=== PATIENT | female | born 1955 | race Caucasian/White ===

== ENCOUNTER 2023-09-17 14:51 | Inpatient (IN) ==
[2023-09-17 15:48] LABS: Hematocrit (blood only) 28.5 % (37.0-47.0); Hemoglobin 8.2 g/dl (12.0-16.0); Mean Corpuscular Hemoglobin 23.9 pg (25.0-34.0); Mean Corpuscular Hgb Conc 28.8 g/dL (32.0-36.0); Mean Corpuscular Volume 83.1 fL (80.0-100.0); Mean Platelet Volume 10.4 fL (9.4-12.4); Platelet Count 660 K/uL (130-400); RDW Coefficient of Variation 20.2 % (11.5-14.5); RDW Standard Deviation 60.1 fL (36.4-46.3); Red Blood Count 3.43 M/uL (4.20-5.40); White Blood Count 15.98 K/ul (4.8-10.8)
[2023-09-17] MEDS ORDERED: OXYMETAZOLINE 0.05% 30 ML BTL ONE (15:53)
[2023-09-17] MEDS ORDERED: STAT IV Infusion **Titration per Protocol STA (16:03)
[2023-09-17] MEDS ORDERED: dilTIAZem HCl 5 MG/ML 5 ML VIAL IV STA (16:03)
[2023-09-17 16:13] LABS: Partial Thromboplastin Ratio 0.9; Partial Thromboplastin Time 25 Seconds (21-31); Prothrombin Time 11.1 Seconds (9.0-12.0)
[2023-09-17] MEDS ORDERED: SODIUM CHLORIDE 0.9% 500 ML IV ONE (16:14)
[2023-09-17] MEDS ORDERED: SODIUM CHLORIDE 0.9% 250 ML IV PRN ×2 (16:14→23:41)
[2023-09-17] MEDS: dilTIAZem HCL 125 MG in DEXTROSE 5% 100 ML IV SCH (16:19)
--- NOTE | 2023-09-17 16:24 | Emergency Department Note ---
Impression & Plan Atrial fibrillation with rapid ventricular response, Anemia, Epistaxis, Elevated troponin, Leukocytosis ED Provider Note NAME: NADEEN MERCEDES AGE: 68 SEX: F : 1955 ARRIVES VIA: Walk-In INFORMANT: [Patient][family] ED PROVIDER(S): [Tang Geiger MD] CHIEF COMPLAINT: Nosebleed HISTORY OF PRESENT ILLNESS: The patient is a 68-year-old female who had 2 coronary stents placed around 4 days ago. The patient states that she has had nasal bleeding since leaving the hospital that has come and gone, it has primarily been right-sided. She was taking Plavix and aspirin but started holding the aspirin because of the bleeding. Today, she had 2 episodes of bleeding and decided to present for evaluation. There has been no shortness of breath or chest pain. No fall or syncope, no trauma. She has had nasal bleeding before from time to time but nothing this severe. Of note, as per nursing staff, the patient was quite tachycardic upon arrival. The patient did not notice any palpitations. She has no history of dysrhythmia. Of note, the patient had presented to [facility] in [place] for weakness. She was found to be quite anemic. The anemia was felt secondary to persistent nasal bleeding. The patient did have an upper GI performed and there was no source for bleeding. There is no blood in her stools. The patient did receive 3 units of red blood cells during the hospital stay. The need for coronary stenting was found during the hospitalization. The stents were placed as noted above without difficulty. The patient did leave the hospital anemic but she is unsure of her hemoglobin value. PMHx/PSHx/Social Hx: See Below PHYSICAL EXAM: GENERAL: Patient is in no acute distress. HEENT: No acute trauma, normocephalic atraumatic, mucous membranes moist, no nasal congestion. Patient had tissues packed in both nostrils. There was a clot removed on the right with the tissues themselves were removed, there was no active bleeding from the right or left side. There was no blood running down the back of the throat. On exam, the patient had an obvious area of irritation to the right anterior nasal septum that had been bleeding earlier, there was no active bleeding. NECK: No stridor, no adenopathy, no meningismus, trachea is midline. LUNGS: Clear to auscultation bilaterally, no wheeze, no rhonchi, breath sounds equal. HEART: Tachycardic and irregular, no obvious murmur. ABDOMEN: Soft, nontender, no peritonitis. EXTREMITIES: No cyanosis, full range of motion of all the joints without pain or difficulty. NEUROLOGIC: Oriented x 3, no acute motor or sensory deficits, no focal weakness. SKIN: No jaundice, no diaphoresis. Somewhat pale DIFFERENTIAL DIAGNOSIS: Anemia, dysrhythmia, A-fib, a flutter, SVT, coagulopathy, electrolyte imbalance, among others. EMERGENCY DEPARTMENT PROCEDURES: MEDICAL DECISION MAKING: There is a moderate leukocytosis at around 15,000, this could be consistent with infection or just the stress of her current situation. Patient's hemoglobin was low at 8.2. I have no old values to use for comparison. Platelet count was high at 660. No coagulopathy. No electrolyte abnormality or renal failure. No concerning liver enzyme elevation. The patient appeared to be in a euthyroid state. ECG showed rapid atrial fibrillation with a right bundle branch block. Cardiac enzyme testing was elevated at 624, this elevation could be secondary to mismatch, acute cardiac injury or her recent coronary stenting. On exam, the patient had an area of previous/recent bleeding to the right anterior nasal septum. No active nasal bleeding. She seemed somewhat pale and was not tachycardic. She did not complain of chest pain or shortness of breath. Patient had Afrin applied to the nose and a nasal clip applied for about 30 minutes, no further bleeding after. She received a 500 cc saline bolus for hydration purposes. She was placed on a diltiazem drip after a diltiazem IV bolus. Patient's heart rate is improved, her blood pressure is adequate at around 150 systolic. She is afebrile, there has been no further nasal bleeding. I spoke to case management and our on-call hospitalist. 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 They felt an ENT procedure was necessary. I spoke with the patient, I spoke again with case management, I did reach out to [facility] for transfer. I spoke with Dr. Hou at [facility] in [place]. There is no bed available at their facility this evening. As the patient was not experiencing ongoing epistaxis, emergent transfer to their emergency room was not felt warranted. They recommended hospitalization at our facility this evening. I did speak with the on-call hospitalist, I spoke with case management. The patient is aware of the change to admission at our facility this evening. Prior/Outside records/notes reviewed: ECG per my interpretation: Indication was tachycardia. The ECG shows a rapid A-fib with a rate of 169. There is a right bundle branch block. There is no obvious ST elevation, there is diffuse T wave inversion consistent with the rapid rate. No PVCs. The QTc is 405. Continuous Cardiac Monitoring per my interpretation: An order was placed for continuous cardiac monitoring. The monitor shows a rate of 155 with rapid atrial fibrillation. Imaging/x-ray results per my interpretation: Chronic Medical/Social conditions affecting care: Coronary artery disease. Care/Management discussed with: Case management and the on-call hospitalist. [facility] retail leader-Dr. Hou. Level of care consideration(s): After review of the information above and other included data: Admission and escalation of care to a tertiary center. DISPOSITION: Admission and eventual transfer to a tertiary center, [facility], when a bed becomes available. Past Med/Surg History Medical History Epistaxis CAD (coronary atherosclerotic disease) Social History Smoking Status: Former smoker Feels Safe at Home: Yes Home Meds Home Medications Medication Instructions Recorded Confirmed atorvastatin 40 mg tablet 40 mg PO HS 09/17/23 09/17/23 clopidogrel 75 mg tablet 75 mg PO DAILY 09/17/23 09/17/23 ferrous sulfate 325 mg (65 mg 325 mg PO QAM 09/17/23 09/17/23 iron) tablet (FeroSul) furosemide 20 mg tablet 20 mg PO QAM 09/17/23 09/17/23 lisinopril 5 mg tablet 5 mg PO QAM 09/17/23 09/17/23 melatonin 1 tab PO HS 09/17/23 09/17/23 metoprolol succinate 25 mg 12.5 mg PO DAILY 09/17/23 09/17/23 tablet,extended release 24 hr nitroglycerin 0.4 mg sublingual 0.4 mg sublingual DIRECTED PRN 09/17/23 09/17/23 tablet Chest Pain pantoprazole 40 mg tablet,delayed 40 mg PO DAILY 09/17/23 09/17/23 release potassium chloride 10 mEq 10 meq PO .EVERY OTHER DAY 09/17/23 09/17/23 tablet,extended release(part/cryst) Results & Data (ED) Vital Signs Vital Signs - 24 hr 09/17/23 14:58 09/17/23 15:31 09/17/23 16:20 Temperature 36.6 C Temperature Source Temporal Artery Scan Pulse Rate 132 H 155 H Pulse Rate [Bilateral] 132 H Respiratory Rate 20 22 Respiratory Effort / Characteristics Non-Labored Respiratory Depth Normal Blood Pressure 127/82 Blood Pressure [Right Arm] 141/99 H Blood Pressure Mean 97 Blood Pressure Mean [Right Arm] 113 Pulse Oximetry 96 95 Oxygen Delivery Method Room Air Room Air Sepsis Recent Fever Within 48 Hours No Sepsis New/Unexplained Change in Mental Status N/A Sepsis Action Taken by Nursing No Action Required 09/17/23 17:00 09/17/23 17:40 09/17/23 18:00 Temperature Temperature Source Pulse Rate Pulse Rate [Bilateral] 109 H 104 H 108 H Respiratory Rate 18 18 18 Respiratory Effort / Characteristics Respiratory Depth Blood Pressure Blood Pressure [Right Arm] 139/85 139/85 149/89 H Blood Pressure Mean Blood Pressure Mean [Right Arm] 103 103 109 Pulse Oximetry 98 96 96 Oxygen Delivery Method Room Air Room Air Room Air Sepsis Recent Fever Within 48 Hours Sepsis New/Unexplained Change in Mental Status Sepsis Action Taken by Nursing 09/17/23 19:14 09/17/23 19:34 Temperature Temperature Source Pulse Rate 93 H Pulse Rate [Bilateral] 98 H Respiratory Rate 18 Respiratory Effort / Characteristics Respiratory Depth Blood Pressure Blood Pressure [Right Arm] 140/98 Blood Pressure Mean Blood Pressure Mean [Right Arm] 112 Pulse Oximetry 98 Oxygen Delivery Method Room Air Sepsis Recent Fever Within 48 Hours Sepsis New/Unexplained Change in Mental Status Sepsis Action Taken by [facility] Medications Current Medication List: was personally reviewed by me Laboratory Data Attestation: I reviewed the patient's lab results. 09/17/23 15:22 09/17/23 16:03 Lab Results 09/17/23 09/17/23 09/17/23 Range/Units 15:22 16:03 16:27 WBC 15.98 H (4.8-10.8) K/ul RBC 3.43 L (4.20-5.40) M/uL Hgb 8.2 L (12.0-16.0) g/dl Hct 28.5 L (37.0-47.0) % MCV 83.1 (80.0-100.0) fL MCH 23.9 L (25.0-34.0) pg MCHC 28.8 L (32.0-36.0) g/dL RDW Std Deviation 60.1 H (36.4-46.3) fL RDW Coeff of Gwen 20.2 H (11.5-14.5) % Plt Count 660 H (130-400) K/uL MPV 10.4 (9.4-12.4) fL PT 11.1 (9.0-12.0) Seconds INR 1.0 (0.9-1.1) APTT 25 (21-31) Seconds PTT Ratio 0.9 Sodium 138 (136-145) mmol/L Potassium 3.9 (3.5-5.1) mmol/L Chloride 103 (98-107) mmol/L Carbon Dioxide 24 (21-32) mmol/L Anion Gap 11 (3-11) BUN 17 (6-23) mg/dl Creatinine 0.72 (0.6-1.2) mg/dl Est Cr Clr Drug Dosing 76.5 ml/min Est GFR ( Amer) 99.0 ml/min Est GFR (Non-Af Amer) 85.4 ml/min BUN/Creatinine Ratio 23.6 H (10-20) Glucose 115 H (70-99(Fasting)) mg/dl Calcium 8.8 (8.6-10.3) mg/dl Magnesium 2.1 (1.7-2.4) mg/dl Total Bilirubin 0.9 (0.2-1.0) mg/dl AST 31 (13-39) U/L ALT 30 (7-52) U/L Alkaline Phosphatase 69 (34-104) U/L Troponin I High Sens 624.1 H* (0-14) pg/ml Total Protein 7.0 (6.0-8.3) gm/dl Albumin 3.5 (3.4-5.0) gm/dl Globulin 3.5 (2.5-4.0) gm/dl Albumin/Globulin Ratio 1.0 (0.9-2) TSH 3.747 (0.300-4.500) uIu/ml Blood Type A Negative Antibody Screen NEGATIVE Crossmatch See Detail Administered Medications Diltiazem HCl 125 mg/ Dextrose 125 mls @ 5 mls/hr IV .Q24H [facility]; Protocol Stop: 10/17/23 16:14 Last Titration: 09/17/23 18:14 Dose: 15 mg/hr, 15 mls/hr Documented By: GEO Co-signed By: SARIKA Titration: 09/17/23 17:15 Dose: 10 mg/hr, 10 mls/hr Documented By: GEO Co-signed By: HS Admin: 09/17/23 16:19 Dose: 5 mg/hr, 5 mls/hr Documented By: GEO Co-signed By: HS Discontinued Medications Diltiazem HCl (Diltiazem Hcl 5 Mg/Ml 5 Ml Vial) 15 mg IV NOW STA Stop: 09/17/23 16:04 Last Admin: 09/17/23 16:18 Dose: 15 mg Documented By: GEO Co-signed By: SARIKA Sodium Chloride (Nss) 500 mls @ 999 mls/hr IV .Q31M ONE Stop: 09/17/23 16:44 Last Infusion: 09/17/23 18:11 Dose: Infused Documented By: Admin: 09/17/23 17:18 Dose: 999 mls/hr Documented By: GEO Miscellaneous (Stat Iv Infusion Titration Per Protocol) 1 each N/A NOW STA Stop: 09/17/23 16:04 Last Admin: 09/17/23 18:32 Dose: Not Given Documented By: GEO Oxymetazoline HCl (Oxymetazoline 0.05% 30 Ml Btl) Confirm Administered Dose 150 sprays .ROUTE .STK-MED ONE Stop: 09/17/23 15:54 Last Admin: 09/17/23 16:18 Dose: 2 sprays Documented By: GEO Discharge Plan Visit Data Chief Complaint: Nose Bleed (Minor) Stated Complaint: NOSE BLEED ONGOING ED Provider: Tang Geiger Discharge Problem: Atrial fibrillation with rapid ventricular response, Anemia, Epistaxis, Elevated troponin, Leukocytosis Patient Disposition: Admitted As Inpatient Condition: Fair Forms Stand Alone Forms: My [facility] Prescriptions Prescriptions: No Action atorvastatin 40 mg tablet 40 mg PO HS clopidogrel 75 mg tablet 75 mg PO DAILY pantoprazole 40 mg tablet,delayed release (DR/EC) 40 mg PO DAILY ferrous sulfate [FeroSul] 325 mg (65 mg iron) tablet 325 mg PO QAM nitroglycerin 0.4 mg tablet, sublingual 0.4 mg sublingual DIRECTED PRN (Reason: Chest Pain) lisinopril 5 mg tablet 5 mg PO QAM furosemide 20 mg tablet 20 mg PO QAM metoprolol succinate 25 mg tablet extended release 24 hr 12.5 mg PO DAILY potassium chloride 10 mEq tablet,ER particles/crystals 10 meq PO .EVERY OTHER DAY melatonin 1 tab PO HS Referrals Referrals: PCP,NO [Primary Care Provider] - Discharge Problem: Anemia Qualifiers: Anemia type: unspecified type Qualified Code(s): D64.9 - Anemia, unspecified Leukocytosis Qualifiers: Leukocytosis type: unspecified Qualified Code(s): D72.829 - Elevated white blood cell count, unspecified
[2023-09-17 16:28] LABS: Albumin Level 3.5 gm/dl (3.4-5.0); BUN Creatinine Ratio 23.6 (10-20); Bilirubin,Total 0.9 mg/dl (0.2-1.0); Calcium 8.8 mg/dl (8.6-10.3); Creatinine Clr Calc Pharmacy 76.5 ml/min; Est GFR (Non-African American) 85.4 ml/min; Globulin 3.5 gm/dl (2.5-4.0); Magnesium 2.1 mg/dl (1.7-2.4); Potassium 3.9 mmol/L (3.5-5.1)
[2023-09-17 16:39] LABS: Troponin I High Sensitivity 624.1 pg/ml (0-14)
[2023-09-17 16:43] LABS: Thyroid Stimulating Hormone 3.747 uIu/ml (0.300-4.500)
--- NOTE | 2023-09-17 17:17 | History & Physical Report ---
Date of Service September 17, 2023 History of Present Illness Primary Care Provider: NO PCP Home Medications Medication Instructions Recorded Confirmed Type atorvastatin 40 mg tablet 40 mg PO HS 09/17/23 09/17/23 History clopidogrel 75 mg tablet 75 mg PO DAILY 09/17/23 09/17/23 History ferrous sulfate 325 mg (65 mg 325 mg PO QAM 09/17/23 09/17/23 History iron) tablet (FeroSul) furosemide 20 mg tablet 20 mg PO QAM 09/17/23 09/17/23 History lisinopril 5 mg tablet 5 mg PO QAM 09/17/23 09/17/23 History melatonin 1 tab PO HS 09/17/23 09/17/23 History metoprolol succinate 25 mg 12.5 mg PO DAILY 09/17/23 09/17/23 History tablet,extended release 24 hr nitroglycerin 0.4 mg sublingual 0.4 mg sublingual DIRECTED PRN 09/17/23 09/17/23 History tablet Chest Pain pantoprazole 40 mg tablet,delayed 40 mg PO DAILY 09/17/23 09/17/23 History release potassium chloride 10 mEq 10 meq PO .EVERY OTHER DAY 09/17/23 09/17/23 History tablet,extended release(part/cryst) Past Med/Surg History Social History Smoking Status: Former smoker Feels Safe at Home: Yes Results & Data Results & Data Vital Signs (Past 12 Hours) Vital Signs Temp Pulse Pulse Resp BP BP Pulse Ox 09/17/23 16:20 132 H 22 141/99 H 95 09/17/23 15:31 155 H 09/17/23 14:58 36.6 C 132 H 20 127/82 96 O2 Del Method 09/17/23 16:20 Room Air 09/17/23 15:31 09/17/23 14:58 Room Air PG Care Time/CCT Total # of Minutes Spent Total Time Spent with Patient: Total time spent is greater than 50% in coordination of care (as documented) at patient's floor/unit and/or counseling patient: Coding
--- NOTE | 2023-09-17 20:02 | Consultation ---
Date of Consultation September 17, 2023 Assessment & Plan (1) Acute blood loss anemia: 2nd to #2 Has already been T/C for 2 units PRBCs likely to need at least 1 unit of PRBCs recheck H/H this evening obtain formal Fe panel, B12, and folic acid levels for baseline cbc am (2) Epistaxis: mainly the R nare for several months in duration she had so much recurrent bleeding that by the time of her admission to [facility] recently she was severely anemic (H/H unknown, however - records not available) required 2 units [address] [facility] she remains anemic here with Hb just above 8 since discharge from [place] she has had 2 heavy nosebleeds - Thursday of this week and today this is a significant dilemma as we cannot stop her plavix due to recent stent placement; stopping plavix could lead to stent thrombosis ideally she remain on DAPT for at least 1 month patient needs thorough ENT evaluation to locate the source/location of the epistaxis without definitive diagnosis/treatment she will continue with epistaxis -- the plavix/aspirin will lend itself to ongoing bleeding further, given the new onset a.fib and high CHADs-VASC score, ideally she should be on anticoagulation but that is simply not possible at this time I had spoken with on-call [facility] shortly after I saw Mrs Bailey in the ER Unfortunately it does not appear that there will be ENT coverage tomorrow on 09/18/23 Given the acute/chronic epistaxis she needs easy access to ENT for evaluation and Rx I recommended to the ER attending that she be transferred to a tertiary care center By report the ER attending reached out to [facility] but she was not accepted in transfer Therefore, she will be admitted to [facility] for Rx of her rapid a.fib, probable transfusion, monitoring for recurrent epistaxis, etc If she rebleeds she will need nasal packing feliberto afrin nasal spray prn placed on her med list (3) Atrial fibrillation with rapid ventricular response: new onset to her knowledge she had no a.fib at [facility] was initiated on a diltiazem drip in the ER tonight and rates have improved with such continue oral beta shaw NOT a candidate for anticoagulation at this time due to #2 obtain echo in am to check LV function, etc. K, mag, and TSH are all wnl (4) Elevated troponin: this could represent myocardial demand ischemia in the setting of her rapid a.fib and her moderate anemia alternatively the troponin could be downtrending from a recent NSTEMI event (again, we don't have records from [facility], and she denies an acute AK - but clearly there were events that led to cardiac catheterization at [place]) will repeat another troponin this evening until the peak is seen (5) CAD (coronary atherosclerotic disease): triple vessel disease diagnosed at [facility] records not available for more specific details of her anatomy cont statin, beta shaw, THALIA ideally she remain on DAPT; if not possible then at least plavix to prevent stent thrombosis (6) History of coronary artery stent placement: 2 stents placed within the last week at [facility] details uncertain - records unavailable patient's brother recalls that they were told she had triple vessel disease was discharged from [facility] on DAPT (asa, plavix), metoprolol, THALIA, statin no chest pain or other ischemic symptoms since hospital discharge records were requested from [facility] (7) Leukocytosis: reactive to rapid a.fib, epistaxis, recent cardiac events, etc? simply repeat cbc in am no signs/symptoms of infectious process at this time will check a COVID/flu/RSV swab along with chest x-ray given rales heard on exam she did have a negative flu & COVID swab at [place] on 09/06/23 Plan SCDs for DVT prophylaxis History of Present Illness Requesting Physician: Dr Tang Geiger Reason for Consultation: epistaxis, rapid a.fib History of Present Illness Pleasant 68yo female with recently diagnosed coronary artery disease (triple vessel s/p 2 stents - details of cardiac cath otherwise uncertain), iron deficiency anemia, prior heavy tobacco use (quit ~1999), and epistaxis of several months duration who presents with complaints of recurrent epistaxis. Mrs Bailey was hospitalized at [facility] in [place] from ~09/06 to 09/13 due to epistaxis and extreme weakness. After admission to [place] she was found to be severely anemic and received 2 units of PRBCs. She cannot recall all of the details but ultimately it was recommended that she undergo cardiac catheterization. She does not remember being told she had had a heart attack. She does not recall a diagnosis of CHF. Per her brother's recollection she had triple vessel disease and there was some discussion about CABG. Ultimately, however, she underwent stent placement x 2 and she was told she would have a 3rd stent placed in the near-future for the newly diagnosed CAD. Prior to discharge from [place] she underwent what sounds like an EGD and was told this was normal. Other details from this hospitalization are unknown as I do not have records from that hospital stay. Patient was discharged on Thursday, 09/13, and although she is from the [facility] she went to stay with her brother in [place]. Apparently she has steps in her home and there was concern she would be too weak to be alone. On Thursday, 09/14, she had a heavy nosebleed that fortunately did stop. 09/15 and 09/16 - no nosebleeds. However, she had another heavy nosebleed today which prompted the visit to the [facility] ER. Sometime this week she stopped taking her aspirin because of the nosebleeds. She did continue her plavix fortunately. With respect to the nosebleeds they have been occurring several times each week "for months." She had not seen any provider for this in the [facility] area. In fact she had not seen any provider in years - she does not have a PCP. The bleeding is usually from the right nostril. She has rare bleeding from the left nostril. Denies any sinus pain/pressure. Denies headaches. She has lost an uncertain amount of weight in the last year. Upon ER presentation to [facility] she was found to be in rapid a.fib. A cardizem bolus followed by drip was given. Initial rates were 140s. Despite the a.fib - which is a new diagnosis for her - she denied any chest pain, palpitations, dyspnea or dyspnea on exertion. Allergies Allergy/AdvReac Type Severity Reaction Status Date / Time latex Allergy Rash Verified 09/17/23 22:49 Home Medications Medication Instructions Recorded Confirmed Type atorvastatin 40 mg tablet 40 mg PO HS 09/17/23 09/17/23 History clopidogrel 75 mg tablet 75 mg PO DAILY 09/17/23 09/17/23 History ferrous sulfate 325 mg (65 mg 325 mg PO QAM 09/17/23 09/17/23 History iron) tablet (FeroSul) furosemide 20 mg tablet 20 mg PO QAM 09/17/23 09/17/23 History lisinopril 5 mg tablet 5 mg PO QAM 09/17/23 09/17/23 History melatonin 1 tab PO HS 09/17/23 09/17/23 History metoprolol succinate 25 mg 12.5 mg PO DAILY 09/17/23 09/17/23 History tablet,extended release 24 hr nitroglycerin 0.4 mg sublingual 0.4 mg sublingual DIRECTED PRN 09/17/23 09/17/23 History tablet Chest Pain pantoprazole 40 mg tablet,delayed 40 mg PO DAILY 09/17/23 09/17/23 History release potassium chloride 10 mEq 10 meq PO .EVERY OTHER DAY 09/17/23 09/17/23 History tablet,extended release(part/cryst) Patient History Medical History (Updated 09/17/23 @ 21:40 by Marquis Sharpe MD) History of blood transfusion [facility] - 08/2023 Anemia Epistaxis CAD (coronary atherosclerotic disease) Surgical History (Updated 09/17/23 @ 21:40 by Marquis Sharpe MD) No pertinent past surgical history Family History (Updated 09/17/23 @ 21:23 by Marquis Sharpe MD) Mother , age 85 Leukemia Father , age 83 Supranuclear palsy Denies family history of Coronary heart disease Social History (Updated 09/17/23 @ 21:24 by Marquis Sharpe MD) Smoking Status: Former smoker Age Started Using Tobacco: 19; Age Quit Using Tobacco: 48; packs per day: 3; Smoking End Date: 30 years ago; Hx Alcohol Use: No Hx Substance Use: No Preferred Language: Polish Communication Ability: Effective 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: No Beliefs That Will Affect Care: None marital status: / Current Living Situation: Alone Current Living Situation Comment: [place] current occupational status: 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, 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 How many Children do You have: 2 How many Children do You have Comment: 1 son, 1 daughter Other Information That Helps Us Care for You: No Feels Safe at Home: Yes Safety Concerns: Feels Safe At This Time Assistive Devices: Walker Review of Systems Review of Systems: gen - weight loss - was 174 # in the past (date uncertain) - now 165 #; appetite wnl; no fevers or chills eyes - no vision loss HENT - chronic epistaxis x 2 several months, mainly the R nare; minimal L nare; no oral lesions neck - chronic mass right side of neck present for "years"; no pain CV - no chest pain/palpitations/orthopnea since leaving [facility]; +edema since leaving [place] pulm - dyspnea and PHILLIPS prior to going to [facility]; now improved; no cough GI - no abd pain, nausea, emesis; no melena; no BRBPR - no dysuria, no hematuria musculo - denies joint pains skin - bruising b/l groins endo - denies h/o diabetes neuro - no headaches psych - no depression Physical Exam Physical Exam: gen - NAD, dried blood noted on nose and face; pleasant; a/o x 3 eyes - PERRL, anicteric HENT - TMs clear b/l; nose - septum deviates to the right; no blood L nare; R nare trace blood anterior septum but no clot seen and no active hemorrhage; mouth - poor dentition, no lesions neck - cyst R side of neck near angle of the jaw; freely mobile, nontender; no JVD; no thyroid masses heart - tachy, irregularly irregular, s1 s2, no murmur lungs - fine dry rales R base, otherwise CTA b/l; no wheeze; no increased work of breathing abd - soft NT ND BS+; no HSM ext - no edema, pulses 2+ b/l neuro - strength 5/5 x 4 exts, DTRs 2+ b/l skin - generalized pallor; ecchymoses b/l groin psych - a/o x 3 Results & Data Vital Signs (Past 12 Hours) Vital Signs Temp Pulse Pulse Resp BP BP Pulse Ox 09/17/23 19:34 98 H 18 140/98 98 09/17/23 19:14 93 H 09/17/23 18:00 108 H 18 149/89 H 96 09/17/23 17:40 104 H 18 139/85 96 09/17/23 17:00 109 H 18 139/85 98 09/17/23 16:20 132 H 22 141/99 H 95 09/17/23 15:31 155 H 09/17/23 14:58 36.6 C 132 H 20 127/82 96 O2 Del Method 09/17/23 19:34 Room Air 09/17/23 19:14 09/17/23 18:00 Room Air 09/17/23 17:40 Room Air 09/17/23 17:00 Room Air 09/17/23 16:20 Room Air 09/17/23 15:31 09/17/23 14:58 Room Air Laboratory Results Laboratory Results - last 24 hr 09/17/23 09/17/23 09/17/23 15:22 16:03 16:27 WBC 15.98 H RBC 3.43 L Hgb 8.2 L Hct 28.5 L MCV 83.1 MCH 23.9 L MCHC 28.8 L RDW Std Deviation 60.1 H RDW Coeff of Gwen 20.2 H Plt Count 660 H MPV 10.4 PT 11.1 INR 1.0 APTT 25 PTT Ratio 0.9 Sodium 138 Potassium 3.9 Chloride 103 Carbon Dioxide 24 Anion Gap 11 BUN 17 Creatinine 0.72 Est Cr Clr Drug Dosing 76.5 Est GFR ( Amer) 99.0 Est GFR (Non-Af Amer) 85.4 BUN/Creatinine Ratio 23.6 H Glucose 115 H Calcium 8.8 Magnesium 2.1 Iron TIBC Unsaturated IBC Transferrin % Sat Ferritin Total Bilirubin 0.9 AST 31 ALT 30 Alkaline Phosphatase 69 Troponin I High Sens 624.1 H* Total Protein 7.0 Albumin 3.5 Globulin 3.5 Albumin/Globulin Ratio 1.0 Vitamin B12 Folate TSH 3.747 Blood Type A Negative Antibody Screen NEGATIVE Crossmatch See Detail Diagnostic Findings EKG - my reading - rapid a.fib, rate >100; RBBB; inferior ST changes; anterolateral ST changes PG Care Time/CCT Total # of Minutes Spent Total Time Spent with Patient: Total time spent is greater than 50% in coordination of care (as documented) at patient's floor/unit and/or counseling patient: Coding Level of Care Code None Diagnoses Acute blood loss anemia D62 Epistaxis R04.0 Atrial fibrillation with rapid ventricular response I48.91 Elevated troponin R79.89 CAD (coronary atherosclerotic disease) I25.10 History of coronary artery stent placement Z95.5 Leukocytosis D72.829 Leukocytosis type: unspecified (7) Leukocytosis Leukocytosis type: unspecified Qualified Code(s): D72.829 - Elevated white blood cell count, unspecified
[2023-09-17 22:17] LABS: Troponin I High Sensitivity 676.1 pg/ml (0-14)
[2023-09-17 22:20] LABS: Ferritin 22.7 ng/ml (8-388)
[2023-09-17 22:24] LABS: Folate (Folic Acid),Ser orPlas 21.94 ng/ml (>5.38)
[2023-09-17] MEDS ORDERED: NITROGLYCERIN SL 0.4 MG/TAB TAB SL PRN (22:25)
[2023-09-17] MEDS ORDERED: ONDANSETRON INJ 2 MG/ML 2 ML VIAL IV PRN (22:25)
[2023-09-17] MEDS ORDERED: OXYMETAZOLINE 0.05% 30 ML BTL PRN (22:25)
[2023-09-17] MEDS ORDERED: ACETAMINOPHEN 325 MG TAB PO PRN (22:25)
[2023-09-17 22:30] LABS: Hematocrit (blood only) 23.5 % (37.0-47.0); Hemoglobin 6.8 g/dl (12.0-16.0)
[2023-09-17] MEDS ORDERED: Patient's ALLERGY Info needs ENTERED SCH (22:45)
[2023-09-17] MEDS ORDERED: MELATONIN 3 MG TAB PO ONE (23:41)
--- NOTE | 2023-09-17 23:52 | Billing Data ---
Date of Service September 17, 2023 Coding Level of Care Code 24867 INT INP/OBS CARE
[2023-09-18] MEDS: dilTIAZem HCL 125 MG in DEXTROSE 5% 100 ML IV SCH ×4 (00:53→15:08)
[2023-09-18 06:25] LABS: Hematocrit (blood only) 26.6 % (37.0-47.0); Hemoglobin 7.9 g/dl (12.0-16.0); Mean Corpuscular Hemoglobin 25.1 pg (25.0-34.0); Mean Corpuscular Hgb Conc 29.7 g/dL (32.0-36.0); Mean Corpuscular Volume 84.4 fL (80.0-100.0); Mean Platelet Volume 10.2 fL (9.4-12.4); Platelet Count 504 K/uL (130-400); RDW Coefficient of Variation 19.7 % (11.5-14.5); RDW Standard Deviation 60.5 fL (36.4-46.3); Red Blood Count 3.15 M/uL (4.20-5.40); White Blood Count 15.45 K/ul (4.8-10.8)
[2023-09-18 06:37] LABS: BUN Creatinine Ratio 23.1 (10-20); Calcium 8.2 mg/dl (8.6-10.3); Creatinine Clr Calc Pharmacy 85.1 ml/min; Est GFR (Non-African American) 90.6 ml/min; Potassium 3.5 mmol/L (3.5-5.1)
--- NOTE | 2023-09-18 07:24 | XRay Report ---
XR chest 2V PA/lateral CLINICAL HISTORY: Right basilar rales. COMPARISON STUDY: No previous studies for comparison. FINDINGS: Lung volumes are normal. No pneumothorax. There are trace bilateral pleural effusions. Ther e is no consolidation to suggest pneumonia. There is moderate cardiomegaly without evidence for pulmo nary edema. IMPRESSION: 1. Cardiomegaly without evidence for pulmonary edema. 2. Trace bilateral pleural effusions. ACT 112: Negative or not required by law. Electronically signed by: Nura Decker M.D. 09/18/2023 7:23 AM
[2023-09-18] MEDS ORDERED: IRON SUCROSE 300 MG in SODIUM CHLORIDE 0.9% 250 ML IV ONE (07:45)
[2023-09-18] MEDS: CLOPIDOGREL BISULFATE 75 MG TAB PO SCH (08:16)
[2023-09-18] MEDS: PANTOprazole 40 MG TAB PO SCH (08:17)
[2023-09-18] MEDS: METOPROLOL SUCC 50MG EXT REL TAB PO SCH (08:17)
[2023-09-18] MEDS ORDERED: FERROUS SULFATE 325 MG TAB PO SCH (09:00)
[2023-09-18] MEDS ORDERED: METOPROLOL SUCC 25MG EXT REL TAB PO SCH ×2 (09:00→21:00)
[2023-09-18] MEDS ORDERED: CLOPIDOGREL BISULFATE 75 MG TAB PO SCH (09:00)
[2023-09-18] MEDS ORDERED: lisinopril 5 MG TAB PO SCH (09:00)
[2023-09-18] MEDS ORDERED: ASPIRIN 81 MG ECTAB PO SCH (09:00)
[2023-09-18] MEDS ORDERED: POTASSIUM CHLORIDE 10 MEQ TABCR PO SCH (09:00)
[2023-09-18 10:57] LABS: Troponin I High Sensitivity 472.3 pg/ml (0-14)
--- NOTE | 2023-09-18 12:20 | CT Scan Report ---
CT sinus wo con CLINICAL HISTORY: acute/chronic epistaxis; assess for pathology TECHNIQUE: Multidetector axial CT images through the sinuses were obtained. Coronal and sagittal refo rmations were also obtained. Automated dose lowering techniques and/or adjustment according to patien t size were utilized for this examination. CT DOSE: 567.55 mGy.cm Comparison: None available at the time of this dictation. FINDINGS: Imaged portions of the paranasal sinuses and mastoid air cells are clear apart from a small mucous re tention cyst in the left maxillary sinus. The orbits appear normal. There are no acute fractures of the calvaria or scalp swelling. IMPRESSION: No significant sinus disease and no abnormality to explain epistaxis. ACT 112: Negative or not required by law. Electronically signed by: Zak Rubalcava M.D. 09/18/2023 12:19 PM
[2023-09-18] MEDS ORDERED: FUROSEMIDE 20 MG TAB PO ONE (12:49)
[2023-09-18] MEDS ORDERED: POTASSIUM CHLORIDE CRTAB 20 MEQ TABCR PO STA (12:49)
[2023-09-18] MEDS ORDERED: MAGNESIUM OXIDE 400 MG TAB PO ONE (12:50)
--- NOTE | 2023-09-18 12:52 | Hospitalist Progress Note ---
Date of Service September 18, 2023 Assessment & Plan (1) Atrial fibrillation with rapid ventricular response: Plan: d/c summary from recent hospitalization at [facility] does not mention a.fib thus this is new onset she has no symptoms from the a.fib so the start date of this is uncertain s/p diltiazem drip initiated in ER yesterday peak amount 10mg/hr this am I titrated her meto succ to 50mg qam with such we have been able to wean her off her dilt drip will add bedtime dose of meto succ 25mg HS NOT a candidate for anticoagulation at this time due to frequent epistaxis and SEVERE anemia echo with EF 55-60% and left atrial enlargement + severe LVH K, mag, and TSH are all wnl (2) Acute blood loss anemia: Plan: 2nd to #3 Records obtained from [facility] - heme negative stool while there Also underwent EGD - mild gastritis, esophagitis only Admission Hb was 5.4 at [facility] with MCV in the low 70s and Fe studies c/w Fe def s/p 1 unit PRBCs Fe panel c/w Fe def --> IV venofer 300mg x 1 today; will give a 2nd dose tomorrow cbc am (3) Epistaxis: Plan: mainly the R nare for several months in duration she had so much recurrent bleeding that by the time of her admission to [facility] recently she was severely anemic - presenting hemoglobin 5.4 required 2 units of PRBCs at [facility] she remains anemic here with Hb just about 8 since discharge from [facility] she has had 2 heavy nosebleeds - Thursday of this week and this is a significant dilemma as we cannot stop her plavix due to recent stent placement; stopping plavix could lead to stent thrombosis ideally she remain on DAPT for at least 1 month but preferably 1 year patient needs thorough ENT evaluation to locate the source/location of the epistaxis without definitive diagnosis/treatment she will continue with epistaxis -- the plavix/aspirin will lend itself to ongoing bleeding further, given the new onset a.fib and high CHADs-VASC score, ideally she should be on anticoagulation but that is simply not possible at this time thankfully she has not had any epistaxis thus far since admission if she were to rebleed she would need urgent nasal packing I spoke informally this am with [facility] re: this case if she has recurrent epistaxis - given her complex medical history and need for DAPT / anticoagulation - she would need transfer to tertiary care in meantime our community outreach specialist contacted multiple ENT offices in the region including [facility] soonest we could obtain outpatient ENT f/u is early September obtained CT sinuses today to look for a lesion causing the bleeding - none seen (4) Elevated troponin: Plan: this could represent myocardial demand ischemia in the setting of her rapid a.fib and her moderate anemia alternatively the troponin could be downtrending from her recent NSTEMI event we finally received her records from [facility] peak troponin there was 60 I am assuming that the 60 is a non-HS troponin level (the 60 would correlate with a HS trop level of 60,000) peak HS trop here - 676 I do not think she had an ACS (5) CAD (coronary atherosclerotic disease): Plan: triple vessel disease diagnosed at [facility] heart cath report obtained from that hospital - 70% prox LAD lesion, 80% L Cx lesion, and 80% RCA lesion there had been discussion about Tx to [facility] in [place] for consideration of CABG the d/c summary alludes that ultimately a decision was made to perform staged stenting LEONELA was placed to the LAD and L Cx lesions with plans for stenting of the RCA in a few weeks she must remain on plavix to prevent stent reocclusion given the cath findings and recent stents will resume asa 81mg daily as well cont statin, beta shaw, THALIA see above re: troponin (6) History of coronary artery stent placement: Plan: 2 stents placed within the last week at [facility] - LAD and L Cx see #5 above (7) Leukocytosis: Plan: had such at [facility] and also has such here reactive to rapid a.fib, epistaxis, recent cardiac events, etc? repeat cbc in am no signs/symptoms of infectious process at this time she did have a negative flu & COVID swab at [facility] on 09/06/23 (8) Iron deficiency: Plan: Fe studies here c/w severe Fe Def B12/folate wnl Give venofer 300mg x 1 EGD at [facility] - mild gastritis and esophagitis - no gastric ca, normal duodenum cont PPI plan venofer tomorrow Fe def likely due to severe recurrent epistaxis cannot rule out colon patholgy - last colonoscopy, if any? repeat cbc am for stability (9) Ischemic cardiomyopathy: Plan: EF 40-45% with grade 2 diastolic dysfunction on echo at [facility] EF has improved s/p 2 LEONELA at [facility] - EF now 55-60% she had orthopnea during her CT sinuses today and IVC is dilated on echo lasix 20mg po x 1 now Plan SCDs for DVT prophylaxis chemical means contraindicated due to recurrent epistaxis, severe anemia, etc PT, OT evals left message for pt's daughter on her voicemail this evening Admission and Anticipated Discharge Date Admission Date: September 17, 2023 Subjective tele overnight - a.fib, rates <100 on cardizem drip / meto succ resting in bed comfortably during the visit no epistaxis since admission no chest pain no nausea/emesis she only had dyspnea 1x when she went for CT scan and was asked to lay flat "I got panicky" denies dyspnea on exertion otherwise rates with activity low 100s Review of Systems Review of Systems: cv - did not have orthopnea/PND overnight but ?orthopnea during her CT sinuses today; no edema pulm - no cough GI - no abd pain, no vomiting Physical Exam Physical Exam: gen - NAD skin - pallor neck - ?mild JVD heart - irregularly irregular, s1 s2, no murmur lungs - fine rales bases, no wheeze, no increased work of breathing abd - soft NT ND BS+ ext - no edema, pulses 2+ b/l psych - slight memory problem? Results & Data Results & Data Vital Signs (Past 12 Hours) Vital Signs Temp Pulse Pulse Resp BP BP Pulse Ox 09/18/23 12:24 36.9 C 69 18 109/80 95 09/18/23 08:01 36.9 C 88 18 146/93 H 91 09/18/23 04:07 36.8 C 85 18 132/91 92 09/18/23 03:51 36.8 C 84 18 136/96 91 09/18/23 02:51 36.9 C 92 H 18 133/96 91 09/18/23 02:21 36.8 C 89 18 129/85 92 09/18/23 02:06 37 C 91 H 18 148/89 H 92 09/18/23 01:48 36.8 C 93 H 18 140/88 93 O2 Del Method 09/18/23 12:24 Room Air 09/18/23 08:01 Room Air 09/18/23 04:07 09/18/23 03:51 09/18/23 02:51 09/18/23 02:21 09/18/23 02:06 09/18/23 01:48 Laboratory Results Laboratory Results - last 48 hr 09/17/23 09/17/23 09/17/23 15:22 16:03 16:27 WBC 15.98 H RBC 3.43 L Hgb 8.2 L Hct 28.5 L MCV 83.1 MCH 23.9 L MCHC 28.8 L RDW Std Deviation 60.1 H RDW Coeff of Gwen 20.2 H Plt Count 660 H MPV 10.4 PT 11.1 INR 1.0 APTT 25 PTT Ratio 0.9 Sodium 138 Potassium 3.9 Chloride 103 Carbon Dioxide 24 Anion Gap 11 BUN 17 Creatinine 0.72 Est Cr Clr Drug Dosing 76.5 Est GFR ( Amer) 99.0 Est GFR (Non-Af Amer) 85.4 BUN/Creatinine Ratio 23.6 H Glucose 115 H Calcium 8.8 Magnesium 2.1 Iron TIBC Unsaturated IBC Transferrin % Sat Ferritin Total Bilirubin 0.9 AST 31 ALT 30 Alkaline Phosphatase 69 Troponin I High Sens 624.1 H* Total Protein 7.0 Albumin 3.5 Globulin 3.5 Albumin/Globulin Ratio 1.0 Vitamin B12 Folate TSH 3.747 Blood Type A Negative Blood Type Recheck Antibody Screen NEGATIVE Crossmatch See Detail 09/17/23 09/18/23 09/18/23 21:32 00:22 05:23 WBC 15.45 H RBC 3.15 L Hgb 6.8 L* 7.9 L Hct 23.5 L 26.6 L MCV 84.4 MCH 25.1 MCHC 29.7 L RDW Std Deviation 60.5 H RDW Coeff of Gwen 19.7 H Plt Count 504 H MPV 10.2 PT INR APTT PTT Ratio Sodium 140 Potassium 3.5 Chloride 105 Carbon Dioxide 26 Anion Gap 9 BUN 15 Creatinine 0.65 Est Cr Clr Drug Dosing 85.1 Est GFR ( Amer) 105.0 Est GFR (Non-Af Amer) 90.6 BUN/Creatinine Ratio 23.1 H Glucose 109 H Calcium 8.2 L Magnesium Iron 18 L TIBC 324 Unsaturated IBC 306 Transferrin % Sat 6 L Ferritin 22.7 Total Bilirubin AST ALT Alkaline Phosphatase Troponin I High Sens 676.1 H* 472.3 H* D Total Protein Albumin Globulin Albumin/Globulin Ratio Vitamin B12 448 Folate 21.94 TSH Blood Type Blood Type Recheck A Negative Antibody Screen Crossmatch Diagnostic Findings Echo - EF 55-60%, IVC dilated, normal valve function, no regional WMA, severe LVH, small pericardial effusion PG Care Time/CCT Total # of Minutes Spent Total Time Spent with Patient: Total time spent is greater than 50% in coordination of care (as documented) at patient's floor/unit and/or counseling patient: Coding Level of Care Code 37874 SUB INP/OBS CARE 3/50MIN Diagnoses Atrial fibrillation with rapid ventricular response I48.91 Acute blood loss anemia D62 Epistaxis R04.0 Elevated troponin R79.89 CAD (coronary atherosclerotic disease) I25.10 History of coronary artery stent placement Z95.5 Leukocytosis D72.829 Leukocytosis type: unspecified Iron deficiency E61.1 Ischemic cardiomyopathy I25.5 (7) Leukocytosis Leukocytosis type: unspecified Qualified Code(s): D72.829 - Elevated white blood cell count, unspecified
--- NOTE | 2023-09-18 15:24 | XCELERA ---
[id number] \\[id number]
[2023-09-18] MEDS: ASPIRIN 81 MG ECTAB PO SCH (15:31)
[2023-09-18] MEDS: ATORVASTATIN 40 MG TAB PO SCH (21:04)
[2023-09-18] MEDS: MELATONIN 3 MG TAB PO SCH (21:04)
[2023-09-19] MEDS ORDERED: METOPROLOL TARTRATE 1 MG/ML VIAL IV STA (00:03)
[2023-09-19] MEDS ORDERED: LACTATED RINGER'S 500 ML IV ONE (00:24)
--- NOTE | 2023-09-19 00:30 | Communication Note ---
Date of Service: September 19, 2023 Notified by nursing at 11:53 PM regarding patient's elevated heart rate despite administration of 25 mg p.o metoprolol succinate 2 hours prior (75 mg total). Confirmed with telemetry that patient's HRs had been in the 130s with occasional spikes to the 150s in the preceding 2 hours. Proceeded to bedside, where patient was awake and asymptomatic. She denies shortness of breath, dizziness, or palpitations. Patient also appeared dry on exam. Ordered stat BMP, Mg. Then ordered LR bolus x 0.5 L, IV Lopressor 5 mg x 1, and p.o. metoprolol succinate 50 mg (30 minutes after IV Lopressor). Discussed plan with nursing and the patient before leaving. Resident Activity Tracking Resident Involvement: Resident Care Provided and Histological Illustrator Coverage Note Care Provided: Adult Hospital Medicine
[2023-09-19] MEDS ORDERED: METOPROLOL SUCC 50MG EXT REL TAB PO ONE (00:55)
[2023-09-19 01:00] LABS: BUN Creatinine Ratio 16.3 (10-20); Calcium 8.4 mg/dl (8.6-10.3); Creatinine Clr Calc Pharmacy 56.5 ml/min; Est GFR (African American) 68.2 ml/min; Est GFR (Non-African American) 58.9 ml/min; Magnesium 1.9 mg/dl (1.7-2.4)
--- NOTE | 2023-09-19 06:10 | Electrocardiogram Report ---
Test Reason : Blood Pressure : / mmHG Vent. Rate : 169 BPM Atrial Rate : 000 BPM P-R Int : 000 ms QRS Dur : 128 ms QT Int : 242 ms P-R-T Axes : 000 090 -49 degrees QTc Int : 405 ms Atrial fibrillation with rapid ventricular response with premature ventricular or aberrantly conducte d complexes Right bundle branch block Possible Right ventricular hypertrophy Possible Lateral infarct , age undetermined Abnormal ECG No previous ECGs available Confirmed by Jeronimo Varner ([id number]) on 09/19/2023 6:10:04 AM Referred By: Confirmed By:Jeronimo Varner
[2023-09-19 07:16] LABS: Hematocrit (blood only) 26.1 % (37.0-47.0); Hemoglobin 7.8 g/dl (12.0-16.0); Mean Corpuscular Hemoglobin 24.9 pg (25.0-34.0); Mean Corpuscular Hgb Conc 29.9 g/dL (32.0-36.0); Mean Corpuscular Volume 83.4 fL (80.0-100.0); Mean Platelet Volume 10.2 fL (9.4-12.4); Platelet Count 613 K/uL (130-400); RDW Coefficient of Variation 19.9 % (11.5-14.5); RDW Standard Deviation 59.7 fL (36.4-46.3); Red Blood Count 3.13 M/uL (4.20-5.40); White Blood Count 14.14 K/ul (4.8-10.8)
[2023-09-19] MEDS: METOPROLOL SUCC 50MG EXT REL TAB PO SCH (07:49)
[2023-09-19] MEDS: PANTOprazole 40 MG TAB PO SCH (07:50)
[2023-09-19] MEDS: ASPIRIN 81 MG ECTAB PO SCH (07:50)
[2023-09-19] MEDS: CLOPIDOGREL BISULFATE 75 MG TAB PO SCH (07:50)
[2023-09-19] MEDS ORDERED: IRON SUCROSE 300 MG in SODIUM CHLORIDE 0.9% 250 ML IV ONE (08:30)
[2023-09-19] MEDS: dilTIAZem HCL 30 MG TAB PO SCH ×2 (09:08→12:06)
[2023-09-19] MEDS ORDERED: SODIUM CHLORIDE 0.65% NA SOLN 45 ML (OCEAN) PRN (13:12)
[2023-09-19] MEDS ORDERED: dilTIAZem HCL 30 MG TAB PO ONE (13:12)
[2023-09-19] MEDS ORDERED: FUROSEMIDE INJ 20 MG/2 ML VIAL IV ONE ×2 (13:14→13:15)
[2023-09-19] MEDS ORDERED: POTASSIUM CHLORIDE CRTAB 20 MEQ TABCR PO STA (13:14)
[2023-09-19] MEDS ORDERED: SODIUM CHLORIDE 0.65% NA SOLN 45 ML (OCEAN) ONE (13:15)
--- NOTE | 2023-09-19 13:15 | Hospitalist Progress Note ---
Date of Service September 19, 2023 Assessment & Plan (1) Atrial fibrillation with rapid ventricular response: Plan: d/c summary from recent hospitalization at [facility] does not mention a.fib thus this is new onset. she has no symptoms from the a.fib. when she converted to a.fib is uncertain. despite titration of metoprolol succ to 50mg qam and 25mg qpm she continues to be uncontrolled. will add diltiazem IR 30mg QID and titrate as needed. ultimately convert to long-acting diltiazem. NOT a candidate for anticoagulation at this time due to frequent epistaxis and SEVERE anemia from such. thus, she is not a candidate for cardioversion. echo with EF 55-60% and left atrial enlargement along with severe LVH. K, mag, and TSH are all wnl. (2) Acute blood loss anemia: Plan: 2nd to #3 Records obtained from [facility] - heme negative stool while there Also underwent EGD at [facility] - mild gastritis, esophagitis only Admission Hb was 5.[address] [facility] with MCV in the low 70s and Fe studies c/w Fe def s/p [address] [facility] Fe panel indeed c/w Fe def --> s/p IV venofer 300mg x 1 on 09/18 will give dose #2 of venofer 300mg today then plan 300mg of venofer tomorrow on 09/20/23 OF NOTE - SHE IS BORDERLINE IN NEED OF PRBCS. YOU COULD MAKE THE ARGUMENT THAT IN LIGHT OF RECENT NSTEMI AT [facility] ALONG WITH ONGOING CARDIAC ISSUES HERE we should use transfusion threshold of <8. recheck CBC in am. (3) Epistaxis: Plan: mainly the R nare for several months in duration she had so much recurrent bleeding that by the time of her admission to [facility] recently she was severely anemic - presenting hemoglobin was 5.4 at [facility] required 2 units of PRBCs at [facility] she remains anemic here with Hb just shy of 8 since discharge from [facility] she has had 2 heavy nosebleeds - Thursday and of last week this is a significant dilemma as we cannot stop her plavix due to recent stent placement; stopping plavix could lead to stent thrombosis ideally she remain on DAPT for at least 1 month but preferably 1 year patient needs thorough ENT evaluation to locate the source/location of the epistaxis without definitive diagnosis/treatment she will continue with epistaxis -- the plavix/aspirin will lend itself to ongoing bleeding further, given the new onset a.fib and high CHADs-VASC score, ideally she should be on anticoagulation but that is simply not possible at this time thankfully she has not had any epistaxis thus far since admission if she were to rebleed she would need urgent nasal packing I spoke informally with [facility] re: this case on 09/18/23 if she has recurrent epistaxis - given her complex medical history and need for DAPT / anticoagulation - she would need transfer to tertiary care in meantime our unit leader contacted multiple ENT offices in the region in [facility] soonest we could obtain outpatient ENT f/u is early September - see discharge instrucitons obtained CT sinuses to look for a lesion causing the bleeding - none seen (4) Elevated troponin: Plan: peak HS trop here - 676 this could represent myocardial demand ischemia in the setting of her rapid a.fib and her moderate anemia alternatively the troponin could be downtrending from her recent NSTEMI event at [facility] we finally received her records from [facility] peak troponin there was 60 I am assuming that the 60 is a non-HS troponin level (the 60 would correlate with a HS trop level of 60,000) (5) CAD (coronary atherosclerotic disease): Plan: triple vessel disease diagnosed at [facility] heart cath report obtained from that hospital - 70% prox LAD lesion, 80% L Cx lesion, and 80% RCA lesion there had been discussion about Tx to [facility] in [place] for consideration of CABG the d/c summary alludes that ultimately a decision was made to perform staged stenting LEONELA was placed to the LAD and L Cx lesions with plans for stenting of the RCA in a few weeks she must remain on plavix to prevent stent reocclusion given the cath findings and recent stents cont asa 81mg daily cont statin, beta shaw hold THALIA to allow more BP room in light of a.fib and need for dual AV zofia agents see above re: troponin (6) History of coronary artery stent placement: Plan: 2 stents placed within the last week at [facility] - LAD and Left Cx see #5 above (7) Leukocytosis: Plan: had such at [facility] and also has such here reactive to rapid a.fib, epistaxis, recent cardiac events, etc? repeat cbc in am no signs/symptoms of infectious process at this time she did have a negative flu & COVID swab at [facility] on 09/06/23 (8) Iron deficiency: Plan: Fe studies here c/w severe Fe Def B12/folate wnl EGD at [facility] - mild gastritis and esophagitis - no gastric ca, normal duodenum cont PPI Fe def likely due to severe recurrent epistaxis cannot rule out colon patholgy - last colonoscopy, if any? repeat cbc am for stability s/p venofer 300mg x 1 on 09/18 s/p venofer 300mg x 1 on 09/19 and plan 3rd dose on 09/20/23 (9) Ischemic cardiomyopathy: Plan: EF 40-45% with grade 2 diastolic dysfunction on echo at [facility] EF has improved s/p 2 LEONELA at [facility] - EF now 55-60% IVC is dilated on echo she is short of breath with doing little activity 20mg lasix IV x 1 now (10) Thrombocytosis: Plan: likely 2nd to severe Fe deficiency trend her CBCs Plan SCDs for DVT prophylaxis chemical means contraindicated due to recurrent epistaxis, severe anemia, etc PT, OT evals pending left message for pt's daughter on her voicemail 09/18 spoke directly to pt's brother on 09/19 and gave update Admission and Anticipated Discharge Date Admission Date: September 17, 2023 Subjective tele overnight - a.fib, most rates >100 required an extra dose of PO lopressor early this am patient reports no episodes of epistaxis she initially denies dyspnea or PHILLIPS, but when she was moving around in the bed and when she tried to lay flat she became visibly dyspneic denies chest pain she continues to have NO palpitations eating/drinking ok tolerated venofer today Review of Systems Review of Systems: gen - no fevers, no chills cv - no edema pulm - no cough GI - no nausea/emesis Physical Exam Physical Exam: gen - NAD - but became dyspneic with moving to supine position in bed skin - pallor nose - no areas of bleeding or scab or blood clot neck - JVD present heart - irregularly irregular, s1 s2, no murmur; tachy lungs - fine rales bases R>L; no wheeze, no increased work of breathing but did have dyspnea abd - soft NT ND BS+ ext - no edema, pulses 2+ b/l Results & Data Results & Data Vital Signs (Past 12 Hours) Vital Signs Temp Pulse Pulse Resp BP Pulse Ox O2 Del Method 09/19/23 12:19 36.4 C L 95 H 18 129/87 97 Room Air 09/19/23 08:22 36.7 C 121 H 18 135/98 93 Room Air 09/19/23 08:00 110 H 09/19/23 08:00 Room Air 09/19/23 03:30 113 H 138/94 09/19/23 02:29 36.7 C 120 H 20 123/105 H 96 Room Air Laboratory Results Laboratory Results - last 24 hr 09/19/23 09/19/23 00:23 06:41 WBC 14.14 H RBC 3.13 L Hgb 7.8 L Hct 26.1 L MCV 83.4 MCH 24.9 L MCHC 29.9 L RDW Std Deviation 59.7 H RDW Coeff of Gwen 19.9 H Plt Count 613 H MPV 10.2 Sodium 139 Potassium 4.0 Chloride 107 Carbon Dioxide 26 Anion Gap 6 BUN 16 Creatinine 0.98 D Est Cr Clr Drug Dosing 56.5 Est GFR ( Amer) 68.2 Est GFR (Non-Af Amer) 58.9 BUN/Creatinine Ratio 16.3 Glucose 104 H Calcium 8.4 L Magnesium 1.9 PG Care Time/CCT Total # of Minutes Spent Total Time Spent with Patient: Total time spent is greater than 50% in coordination of care (as documented) at patient's floor/unit and/or counseling patient: Coding Level of Care Code 36925 SUB INP/OBS CARE 3/50MIN Diagnoses Atrial fibrillation with rapid ventricular response I48.91 Acute blood loss anemia D62 Epistaxis R04.0 Elevated troponin R79.89 CAD (coronary atherosclerotic disease) I25.10 History of coronary artery stent placement Z95.5 Leukocytosis D72.829 Leukocytosis type: unspecified Iron deficiency E61.1 Ischemic cardiomyopathy I25.5 Thrombocytosis D75.839 (7) Leukocytosis Leukocytosis type: unspecified Qualified Code(s): D72.829 - Elevated white blood cell count, unspecified
[2023-09-19] MEDS: POLYETHYLENE (MIRALAX) 17 GM PACK PO SCH (13:43)
[2023-09-19] MEDS: dilTIAZem HCl 60 MG TAB PO SCH ×2 (17:30→20:31)
[2023-09-19] MEDS: ATORVASTATIN 40 MG TAB PO SCH (20:31)
[2023-09-19] MEDS: MELATONIN 3 MG TAB PO SCH (20:32)
[2023-09-19] MEDS ORDERED: METOPROLOL SUCC 50MG EXT REL TAB PO SCH (21:00)
[2023-09-20 06:00] LABS: Hematocrit (blood only) 29.3 % (37.0-47.0); Hemoglobin 8.5 g/dl (12.0-16.0); Mean Corpuscular Hemoglobin 24.9 pg (25.0-34.0); Mean Corpuscular Volume 85.9 fL (80.0-100.0); Mean Platelet Volume 10.2 fL (9.4-12.4); Nucleated RBC # (auto) 0.03 K/uL (0.00-0.12); Nucleated RBC % (auto) 0.2 %; Platelet Count 679 K/uL (130-400); RDW Coefficient of Variation 20.5 % (11.5-14.5); Red Blood Count 3.41 M/uL (4.20-5.40); White Blood Count 12.42 K/ul (4.8-10.8)
[2023-09-20 06:16] LABS: BUN Creatinine Ratio 19.8 (10-20); Calcium 8.8 mg/dl (8.6-10.3); Creatinine Clr Calc Pharmacy 68.3 ml/min; Est GFR (African American) 85.9 ml/min; Est GFR (Non-African American) 74.1 ml/min; Potassium 3.9 mmol/L (3.5-5.1)
[2023-09-20] MEDS: CLOPIDOGREL BISULFATE 75 MG TAB PO SCH (07:37)
[2023-09-20] MEDS: PANTOprazole 40 MG TAB PO SCH (07:37)
[2023-09-20] MEDS: POLYETHYLENE (MIRALAX) 17 GM PACK PO SCH (07:37)
[2023-09-20] MEDS: ASPIRIN 81 MG ECTAB PO SCH (07:38)
[2023-09-20] MEDS: dilTIAZem HCl 60 MG TAB PO SCH ×4 (07:38→21:12)
[2023-09-20] MEDS: POTASSIUM CHLORIDE 10 MEQ TABCR PO SCH (07:38)
[2023-09-20] MEDS ORDERED: IRON SUCROSE 300 MG in SODIUM CHLORIDE 0.9% 250 ML IV ONE (08:00)
[2023-09-20] MEDS: METOPROLOL SUCC 50MG EXT REL TAB PO SCH ×2 (08:26→21:12)
[2023-09-20] MEDS: SUCRALFATE 1 GM/10 ML UDC PO SCH ×4 (08:26→21:10)
[2023-09-20] MEDS ORDERED: METOPROLOL TARTRATE 1 MG/ML VIAL IV PRN (11:55)
--- NOTE | 2023-09-20 12:03 | Hospitalist Progress Note ---
Date of Service September 20, 2023 Assessment & Plan (1) Atrial fibrillation with rapid ventricular response: Plan: Continue telemetry. Metoprolol uptitrated further today, September 20. Continue diltiazem. She is on aspirin and Plavix after recent PCI of circumflex and LAD. She is not a candidate for systemic anticoagulation due to recurrent epistaxis. Free T3 and free T4 are normal. (2) Acute blood loss anemia: Plan: This appears to be due to recurrent epistaxis but she also has iron deficiency. She received blood transfusion this admission and hemoglobin is now 8.5. She has completed her parenteral course of iron replacement and will be started on oral iron supplements. Serial labs. (3) Epistaxis: Plan: Outpatient ENT evaluation as soon as possible. Try to keep the nasal mucosa moist with nasal sprays and Vaseline. Antiplatelet therapy cannot be stopped at this time. CT scan of the sinuses is unremarkable (4) Elevated troponin: Plan: Probably supply/demand mismatch. No evidence of acute coronary syndrome. Telemetry. (5) CAD (coronary atherosclerotic disease): Plan: triple vessel disease diagnosed at [facility] . Recent heart cath report obtained from that hospital - 70% prox LAD lesion, 80% L Cx lesion, and 80% RCA lesion. PCI was completed and she underwent LEONELA placement in the LAD and L Cx lesions with plans for stenting of the RCA in a few weeks . Unfortunately, her antiplatelet regimen cannot be discontinued. She remains on aspirin and Plavix. (6) History of coronary artery stent placement: Plan: 2 stents placed within the last week at [facility] - LAD and Left Cx (7) Leukocytosis: Plan: Suspected to be reactive. Serial labs (8) Iron deficiency: Plan: She has completed her parenteral iron replacement. She is now on oral ferrous gluconate. Recent EGD at outside hospital revealed gastritis and esophagitis. She is now on Protonix and Carafate therapy. (9) Ischemic cardiomyopathy: Plan: EF 40-45% with grade 2 diastolic dysfunction on echo at [facility]. Cardiac echo done here looks better with ejection fraction improved to 55%. No overt CHF but she did receive 1 dose of parenteral Lasix while hospitalized here (10) Thrombocytosis: Plan: likely 2nd to severe Fe deficiency . Continue on replacement. Serial labs Plan Atrial fibrillation rate control. She will need to continue her dual antiplatelet therapy for now. Continue iron replacement. Hopefully home tomorrow, September 21 Admission and Anticipated Discharge Date Admission Date: September 17, 2023 Subjective Alert and oriented. Pleasant. Metoprolol has been uptitrated further today, September 20. She also remains on diltiazem. She completed day 3 of parenteral iron replacement. She will be started on oral ferrous gluconate. Carafate suspension added to Protonix for treatment of known gastritis and esophagitis. Hopefully she can go home tomorrow, September 21 Review of Systems 2 Review of Systems: Constitutional-no fever or chills ENT-no blurred vision, no double vision, no sore throat. Intermittent epistaxis Respiratory-no cough, no wheezing, no shortness of breath Cardiac-no palpitations, no chest pain, no syncope GI-no nausea, vomiting, diarrhea, melena, hematochezia -no urinary retention, no urinary incontinence, no dysuria, no hematuria Musculoskeletal-no joint pain, no muscle tenderness Skin-no bruising, no rashes, no pruritus Neuro-no isolated weakness, no paresthesia, no weakness Psych-no depression, no anxiety Physical Exam 2 Physical Exam: General-alert and oriented x3, no fevers, no chills HEENT-head atraumatic and normocephalic, pupils equal and reactive to light, extraocular muscles intact Neck-no lymphadenopathy or thyromegaly, trachea midline Chest-clear to auscultation percussion. No rales wheezing or rhonchi Cardiac-irregular somewhat tachycardic rate and rhythm. Normal S1 and S2 Abdomen-normal bowel sounds, nontender, no hepatosplenomegaly Extremities-no cyanosis, clubbing, or edema Neuro-cranial nerves II through XII intact, motor and sensory function within normal limits, strength symmetrical, no focal deficits Psych-normal affect, normal mood Results & Data Results & Data Vital Signs (Past 12 Hours) Vital Signs Temp Pulse Resp BP Pulse Ox O2 Del Method 09/20/23 08:53 36.6 C 152 H 18 122/73 93 Room Air 09/20/23 03:27 36.8 C 103 H 18 146/95 H 93 Room Air Laboratory Results 09/20/23 05:22 09/20/23 05:22 PG Care Time/CCT Total # of Minutes Spent Total Time Spent with Patient: Total time spent is greater than 50% in coordination of care (as documented) at patient's floor/unit and/or counseling patient: Coding Level of Care Code 68337 SUB INP/OBS CARE 3/50MIN Diagnoses Atrial fibrillation with rapid ventricular response I48.91 Acute blood loss anemia D62 Epistaxis R04.0 Elevated troponin R79.89 CAD (coronary atherosclerotic disease) I25.10 History of coronary artery stent placement Z95.5 Leukocytosis D72.829 Leukocytosis type: unspecified Iron deficiency E61.1 Ischemic cardiomyopathy I25.5 Thrombocytosis D75.839 (7) Leukocytosis Leukocytosis type: unspecified Qualified Code(s): D72.829 - Elevated white blood cell count, unspecified
[2023-09-20] MEDS: FERROUS GLUCONATE 324 MG TAB PO SCH (16:14)
[2023-09-20] MEDS: ATORVASTATIN 40 MG TAB PO SCH (21:11)
[2023-09-20] MEDS: MELATONIN 3 MG TAB PO SCH (21:11)
--- NOTE | 2023-09-21 06:31 | Electrocardiogram Report ---
Test Reason : Blood Pressure : / mmHG Vent. Rate : 111 BPM Atrial Rate : 085 BPM P-R Int : 000 ms QRS Dur : 132 ms QT Int : 392 ms P-R-T Axes : 000 090 -23 degrees QTc Int : 533 ms Atrial fibrillation with rapid ventricular response Right bundle branch block Possible Lateral infarct (cited on or before 17-SEP-2023) T wave abnormality, consider inferior ischemia Abnormal ECG When compared with ECG of 17-SEP-2023 15:09, Vent. rate has decreased BY 58 BPM Confirmed by Wesley Castaneda ([id number]) on 09/21/2023 6:31:08 AM Referred By: REFERRED SELF Confirmed By:Wesley Castaneda
[2023-09-21 07:19] LABS: Basophils % (auto) 0.8 %; Eosinophils # (auto) 0.16 K/uL (0.00-0.50); Eosinophils % (auto) 1.3 %; Hematocrit (blood only) 29.3 % (37.0-47.0); Hemoglobin 8.8 g/dl (12.0-16.0); Immature Granulocytes % (auto) 0.8 %; Lymphocytes # (auto) 1.75 K/uL (1.20-3.40); Lymphocytes % (auto) 14.8 %; Mean Corpuscular Hemoglobin 25.7 pg (25.0-34.0); Mean Corpuscular Volume 85.4 fL (80.0-100.0); Mean Platelet Volume 10.1 fL (9.4-12.4); Monocytes # (auto) 0.92 K/uL (0.11-0.59); Monocytes % (auto) 7.8 %; Neutrophils # (auto) 8.83 K/uL (1.40-6.50); Neutrophils % (auto) 74.5 %; Nucleated RBC # (auto) 0.03 K/uL (0.00-0.12); Nucleated RBC % (auto) 0.3 %; Platelet Count 713 K/uL (130-400); RDW Coefficient of Variation 21.6 % (11.5-14.5); RDW Standard Deviation 63.8 fL (36.4-46.3); Red Blood Count 3.43 M/uL (4.20-5.40); White Blood Count 11.86 K/ul (4.8-10.8)
[2023-09-21 07:38] LABS: BUN Creatinine Ratio 18.8 (10-20); Calcium 8.9 mg/dl (8.6-10.3); Creatinine Clr Calc Pharmacy 66.2 ml/min; Est GFR (Non-African American) 69.9 ml/min
[2023-09-21 08:02] LABS: Anisocytosis Present; Polychromasia 1+
[2023-09-21] MEDS: METOPROLOL SUCC 50MG EXT REL TAB PO SCH ×2 (08:02→20:16)
[2023-09-21] MEDS: SUCRALFATE 1 GM/10 ML UDC PO SCH ×4 (08:02→20:15)
[2023-09-21] MEDS: dilTIAZem HCl 60 MG TAB PO SCH (08:02)
[2023-09-21] MEDS: PANTOprazole 40 MG TAB PO SCH (08:02)
[2023-09-21] MEDS: CLOPIDOGREL BISULFATE 75 MG TAB PO SCH (08:02)
[2023-09-21] MEDS: ASPIRIN 81 MG ECTAB PO SCH (08:03)
[2023-09-21] MEDS: FERROUS GLUCONATE 324 MG TAB PO SCH ×2 (08:03→17:33)
[2023-09-21] MEDS: POTASSIUM CHLORIDE 10 MEQ TABCR PO SCH (08:03)
[2023-09-21] MEDS: POLYETHYLENE (MIRALAX) 17 GM PACK PO SCH (08:03)
[2023-09-21] MEDS ORDERED: DIGOXIN 500 MCG in SYRINGE 0 ML IV ONE (09:45)
[2023-09-21] MEDS: dilTIAZem HCL 240 MG CAPCR PO SCH (10:19)
[2023-09-21] MEDS ORDERED: SILVER NITR/POTASSIUM NITRATE APPLICATOR EXT ONE (11:39)
--- NOTE | 2023-09-21 15:55 | Hospitalist Progress Note ---
Date of Service September 21, 2023 Assessment & Plan (1) Atrial fibrillation with rapid ventricular response: Plan: Continue telemetry. Metoprolol uptitrated further on September 20. Continue diltiazem. She was switched to the CD formulation today, September 21. Digoxin has also been added. Will try to avoid amiodarone and its associated toxicity for now. She is on aspirin and Plavix after recent PCI of circumflex and LAD. She is not a candidate for systemic anticoagulation due to recurrent epistaxis. Free T3 and free T4 are normal. (2) Acute blood loss anemia: Plan: This appears to be due to recurrent epistaxis but she also has iron deficiency. She received blood transfusion this admission and hemoglobin is now stable. She has completed her parenteral course of iron replacement and has been started on oral iron supplements. Serial labs. (3) Epistaxis: Plan: Outpatient ENT evaluation as soon as possible. Try to keep the nasal mucosa moist with nasal sprays and Vaseline. Antiplatelet therapy cannot be stopped at this time. CT scan of the sinuses is unremarkable. Recurrent right nares epistaxis today, September 21, was suppressed without the use of a Rhino Rocket. (4) Elevated troponin: Plan: Probably supply/demand mismatch. No evidence of acute coronary syndrome. Telemetry. (5) CAD (coronary atherosclerotic disease): Plan: triple vessel disease diagnosed at [facility] . Recent heart cath report obtained from that hospital - 70% prox LAD lesion, 80% L Cx lesion, and 80% RCA lesion. PCI was completed and she underwent LEONELA placement in the LAD and L Cx lesions with plans for stenting of the RCA in a few weeks . Unfortunately, her antiplatelet regimen cannot be discontinued. She remains on aspirin and Plavix. (6) History of coronary artery stent placement: Plan: 2 stents placed within the last week at [facility] - LAD and Left Cx (7) Leukocytosis: Plan: Suspected to be reactive. Serial labs (8) Iron deficiency: Plan: She has completed her parenteral iron replacement. She is now on oral ferrous gluconate. Recent EGD at outside hospital revealed gastritis and esophagitis. She is now on Protonix and Carafate therapy. (9) Ischemic cardiomyopathy: Plan: EF 40-45% with grade 2 diastolic dysfunction on echo at [facility]. Cardiac echo done here looks better with ejection fraction improved to 55%. No overt CHF but she did receive 1 dose of parenteral Lasix while hospitalized here (10) Thrombocytosis: Plan: likely 2nd to severe Fe deficiency . Continue on replacement. Serial labs Plan Anticipate discharge to home when atrial fibrillation rate is brought under control and there is no further epistaxis. [facility] ENT consult pending. She will need to continue her dual antiplatelet therapy for now. Continue iron replacement. Admission and Anticipated Discharge Date Admission Date: September 17, 2023 Subjective Alert and oriented. Recurrent epistaxis today from the right nares. This was suppressed without the need for a Rhino Rocket. [facility] ENT consult requested and pending. Hemoglobin stable at 8.8. Atrial fibrillation remains fast at times. Digoxin has been added to diltiazem and metoprolol. Will try to avoid amiodarone for now. Cardiac echo reveals left ventricular hypertrophy with normal ejection fraction. Review of Systems 2 Review of Systems: Constitutional-no fever or chills ENT-no blurred vision, no double vision, no sore throat. Intermittent epistaxis Respiratory-no cough, no wheezing, no shortness of breath Cardiac-no palpitations, no chest pain, no syncope GI-no nausea, vomiting, diarrhea, melena, hematochezia -no urinary retention, no urinary incontinence, no dysuria, no hematuria Musculoskeletal-no joint pain, no muscle tenderness Skin-no bruising, no rashes, no pruritus Neuro-no isolated weakness, no paresthesia, no weakness Psych-no depression, no anxiety Physical Exam 2 Physical Exam: General-alert and oriented x3, no fevers, no chills HEENT-head atraumatic and normocephalic, pupils equal and reactive to light, extraocular muscles intact. Recurrent bleeding from right nares today Neck-no lymphadenopathy or thyromegaly, trachea midline Chest-clear to auscultation percussion. No rales wheezing or rhonchi Cardiac-irregular somewhat tachycardic rate and rhythm. Normal S1 and S2 Abdomen-normal bowel sounds, nontender, no hepatosplenomegaly Extremities-no cyanosis, clubbing, or edema Neuro-cranial nerves II through XII intact, motor and sensory function within normal limits, strength symmetrical, no focal deficits Psych-normal affect, normal mood Results & Data Results & Data Vital Signs (Past 12 Hours) Vital Signs Temp Pulse Pulse Resp BP BP Pulse Ox 09/21/23 15:19 36.8 C 104 H 18 179/93 H 97 09/21/23 15:04 101 H 09/21/23 12:37 101 H 09/21/23 12:05 36.6 C 76 18 96 09/21/23 10:19 101 H 09/21/23 08:25 36.8 C 114 H 18 144/104 H 92 09/21/23 04:03 37.4 C 88 20 138/74 94 O2 Del Method 09/21/23 15:19 Room Air 09/21/23 15:04 09/21/23 12:37 09/21/23 12:05 Room Air 09/21/23 10:19 09/21/23 08:25 Room Air 09/21/23 04:03 Room Air Laboratory Results 09/21/23 06:54 09/21/23 06:54 PG Care Time/CCT Total # of Minutes Spent Total Time Spent with Patient: Total time spent is greater than 50% in coordination of care (as documented) at patient's floor/unit and/or counseling patient: Coding Level of Care Code 30755 SUB INP/OBS CARE 3/50MIN Diagnoses Atrial fibrillation with rapid ventricular response I48.91 Acute blood loss anemia D62 Epistaxis R04.0 Elevated troponin R79.89 CAD (coronary atherosclerotic disease) I25.10 History of coronary artery stent placement Z95.5 Leukocytosis D72.829 Leukocytosis type: unspecified Iron deficiency E61.1 Ischemic cardiomyopathy I25.5 Thrombocytosis D75.839 (7) Leukocytosis Leukocytosis type: unspecified Qualified Code(s): D72.829 - Elevated white blood cell count, unspecified
[2023-09-21] MEDS ORDERED: DIGOXIN 250 MCG in SYRINGE 9 ML IV ONE (18:00)
[2023-09-21] MEDS: MELATONIN 3 MG TAB PO SCH (20:15)
[2023-09-21] MEDS: ATORVASTATIN 40 MG TAB PO SCH (20:16)
[2023-09-21] MEDS ORDERED: METOPROLOL SUCC 25MG EXT REL TAB PO STA (21:59)
--- NOTE | 2023-09-21 22:13 | Communication Note ---
Date of Service: September 21, 2023 Received notification patient having continuous nosebleed. Per nursing has been holding pressure for 15 min at this time, also noted elevated bp 171/109. Patient has been seen by ENT, was given afrin nasal spray and cauterization, has outpatient appointment with ENT tomorrow. After pressure was removed bleeding was noted to stop, patient educated to be very gentle cleaning around her nose. Repeat BP 168/104 HR 104. Ordered additional dosage metoprolol succinate 25mg PO to help with BP and HR, hopefully this will help prevent further epistaxis megan kim.
[2023-09-22 06:41] LABS: Basophils # (auto) 0.09 K/uL (0.00-0.20); Basophils % (auto) 0.7 %; Eosinophils # (auto) 0.12 K/uL (0.00-0.50); Eosinophils % (auto) 0.9 %; Hematocrit (blood only) 29.9 % (37.0-47.0); Immature Granulocytes # (auto) 0.07 K/uL (0.01-0.20); Immature Granulocytes % (auto) 0.5 %; Lymphocytes # (auto) 1.31 K/uL (1.20-3.40); Mean Corpuscular Hemoglobin 25.8 pg (25.0-34.0); Mean Corpuscular Hgb Conc 30.1 g/dL (32.0-36.0); Mean Corpuscular Volume 85.7 fL (80.0-100.0); Mean Platelet Volume 10.1 fL (9.4-12.4); Monocytes # (auto) 1.04 K/uL (0.11-0.59); Monocytes % (auto) 7.9 %; Neutrophils # (auto) 10.48 K/uL (1.40-6.50); Platelet Count 743 K/uL (130-400); RDW Coefficient of Variation 22.4 % (11.5-14.5); RDW Standard Deviation 65.6 fL (36.4-46.3); Red Blood Count 3.49 M/uL (4.20-5.40); White Blood Count 13.11 K/ul (4.8-10.8)
[2023-09-22 07:00] LABS: BUN Creatinine Ratio 18.9 (10-20); Calcium 8.6 mg/dl (8.6-10.3); Creatinine Clr Calc Pharmacy 75.8 ml/min; Est GFR (African American) 95.8 ml/min; Est GFR (Non-African American) 82.7 ml/min; Potassium 4.1 mmol/L (3.5-5.1)
[2023-09-22 07:04] LABS: Anisocytosis Present; Polychromasia 1+
[2023-09-22] MEDS: FERROUS GLUCONATE 324 MG TAB PO SCH ×2 (07:32→16:54)
[2023-09-22] MEDS: dilTIAZem HCL 240 MG CAPCR PO SCH (07:33)
[2023-09-22] MEDS: METOPROLOL SUCC 50MG EXT REL TAB PO SCH ×2 (07:33→20:12)
[2023-09-22] MEDS: PANTOprazole 40 MG TAB PO SCH (07:34)
[2023-09-22] MEDS: SUCRALFATE 1 GM/10 ML UDC PO SCH ×4 (07:35→20:11)
[2023-09-22] MEDS: POTASSIUM CHLORIDE 10 MEQ TABCR PO SCH (07:35)
[2023-09-22] MEDS: POLYETHYLENE (MIRALAX) 17 GM PACK PO SCH (09:23)
[2023-09-22] MEDS: CLOPIDOGREL BISULFATE 75 MG TAB PO SCH (09:24)
[2023-09-22] MEDS: ASPIRIN 81 MG ECTAB PO SCH ×2 (09:24→10:23)
--- NOTE | 2023-09-22 10:11 | Electrocardiogram Report ---
Test Reason : Blood Pressure : / mmHG Vent. Rate : 099 BPM Atrial Rate : 129 BPM P-R Int : 000 ms QRS Dur : 134 ms QT Int : 392 ms P-R-T Axes : 000 091 -36 degrees QTc Int : 503 ms Atrial fibrillation Right bundle branch block T wave abnormality, consider inferior ischemia Abnormal ECG When compared with ECG of 20-SEP-2023 08:28, No significant change was found Confirmed by Bryan Dowd ([id number]) on 09/22/2023 10:11:19 AM Referred By: REFERRED SELF Confirmed By:Jose Dowd
[2023-09-22] MEDS: DIGOXIN 0.25 MG TAB PO SCH (10:23)
[2023-09-22] MEDS: lisinopril 10 MG TAB PO SCH (10:23)
[2023-09-22] MEDS: cephALEXin 500 MG CAP PO SCH ×3 (12:41→20:12)
--- NOTE | 2023-09-22 13:05 | Hospitalist Progress Note ---
Date of Service September 22, 2023 Assessment & Plan (1) Atrial fibrillation with rapid ventricular response: Plan: Continue telemetry. Metoprolol uptitrated further on September 20. Continue diltiazem. She was switched to the CD formulation on September 21. Digoxin has also been added and has helped considerably with rate control.. Will try to avoid amiodarone and its associated toxicity for now. She is on aspirin and Plavix after recent PCI of circumflex and LAD. She is not a candidate for systemic anticoagulation due to recurrent epistaxis. Free T3 and free T4 are normal. (2) Acute blood loss anemia: Plan: This appears to be due to recurrent epistaxis but she also has iron deficiency. She received blood transfusion this admission and hemoglobin is now stable. She has completed her parenteral course of iron replacement and has been started on oral iron supplements. Serial labs. (3) Epistaxis: Plan: [facility] ENT consultation is pending. Try to keep the nasal mucosa moist with nasal sprays and Vaseline. Antiplatelet therapy cannot be stopped at this time. CT scan of the sinuses is unremarkable. Recurrent right nares epistaxis again last evening. Fortunately, we have been able to avoid placement of a Rhino Rocket. (4) Superficial thrombophlebitis of arm: Plan: Right forearm involvement. Continue heat applications. Oral Keflex has been ordered. (5) Elevated troponin: Plan: Probably supply/demand mismatch. No evidence of acute coronary syndrome. Telemetry. (6) CAD (coronary atherosclerotic disease): Plan: triple vessel disease diagnosed at [facility] . Recent heart cath report obtained from that hospital - 70% prox LAD lesion, 80% L Cx lesion, and 80% RCA lesion. PCI was completed and she underwent LEONELA placement in the LAD and L Cx lesions with plans for stenting of the RCA in a few weeks . Unfortunately, her antiplatelet regimen cannot be discontinued. She remains on aspirin and Plavix. (7) History of coronary artery stent placement: Plan: 2 stents placed within the last week at [facility] - LAD and Left Cx (8) Leukocytosis: Plan: Suspected to be reactive. Serial labs (9) Iron deficiency: Plan: She has completed her parenteral iron replacement. She is now on oral ferrous gluconate. Recent EGD at outside hospital revealed gastritis and esophagitis. She is now on Protonix and Carafate therapy. (10) Ischemic cardiomyopathy: Plan: EF 40-45% with grade 2 diastolic dysfunction on echo at [facility]. Cardiac echo done here looks better with ejection fraction improved to 55%. No overt CHF but she did receive 1 dose of parenteral Lasix while hospitalized here (11) Thrombocytosis: Plan: likely 2nd to severe Fe deficiency . Continue on replacement. Serial labs Plan Hopefully home tomorrow, September 23 Admission and Anticipated Discharge Date Admission Date: September 17, 2023 Subjective Alert and oriented. She had another nosebleed last evening. [facility] ENT consultation is pending. She remains on aspirin and Plavix due to recent coronary stents. She has atrial fibrillation but is not a candidate for systemic anticoagulation at this point. Lanoxin has helped considerably with rate control. Lisinopril restarted for better blood pressure control. She has developed a superficial thrombophlebitis of the right upper extremity. Warm compresses and oral Keflex ordered. OT and PT assessments have determined that she is safe to go home when the time comes. Hopefully tomorrowSeptember 23 Review of Systems 2 Review of Systems: Constitutional-no fever or chills ENT-no blurred vision, no double vision, no sore throat. Intermittent epistaxis Respiratory-no cough, no wheezing, no shortness of breath Cardiac-no palpitations, no chest pain, no syncope GI-no nausea, vomiting, diarrhea, melena, hematochezia -no urinary retention, no urinary incontinence, no dysuria, no hematuria Musculoskeletal-no joint pain, no muscle tenderness Skin-no bruising, no rashes, no pruritus Neuro-no isolated weakness, no paresthesia, no weakness Psych-no depression, no anxiety Physical Exam 2 Physical Exam: General-alert and oriented x3, no fevers, no chills HEENT-head atraumatic and normocephalic, pupils equal and reactive to light, extraocular muscles intact. Recurrent bleeding from right nares today Neck-no lymphadenopathy or thyromegaly, trachea midline Chest-clear to auscultation percussion. No rales wheezing or rhonchi Cardiac-irregular somewhat tachycardic rate and rhythm. Normal S1 and S2 Abdomen-normal bowel sounds, nontender, no hepatosplenomegaly Extremities-no cyanosis, clubbing, or edema Neuro-cranial nerves II through XII intact, motor and sensory function within normal limits, strength symmetrical, no focal deficits Psych-normal affect, normal mood Results & Data Results & Data Vital Signs (Past 12 Hours) Vital Signs Temp Pulse Pulse Pulse Resp BP BP 09/22/23 11:27 36.3 C L 89 19 147/98 H 09/22/23 10:23 98 H 09/22/23 07:02 36.8 C 102 H 18 156/121 H 161/109 H 09/22/23 03:00 36.7 C 89 20 156/98 H 09/22/23 01:06 87 143/92 H Pulse Ox O2 Del Method 09/22/23 11:27 95 Room Air 09/22/23 10:23 09/22/23 07:02 94 Room Air 09/22/23 03:00 93 Room Air 09/22/23 01:06 91 Room Air Laboratory Results 09/22/23 06:13 09/22/23 06:13 PG Care Time/CCT Total # of Minutes Spent Total Time Spent with Patient: Total time spent is greater than 50% in coordination of care (as documented) at patient's floor/unit and/or counseling patient: Coding Level of Care Code 90472 SUB INP/OBS CARE 3/50MIN Diagnoses Atrial fibrillation with rapid ventricular response I48.91 Acute blood loss anemia D62 Epistaxis R04.0 Superficial thrombophlebitis of arm I80.8 Elevated troponin R79.89 CAD (coronary atherosclerotic disease) I25.10 History of coronary artery stent placement Z95.5 Leukocytosis D72.829 Leukocytosis type: unspecified Iron deficiency E61.1 Ischemic cardiomyopathy I25.5 Thrombocytosis D75.839 (8) Leukocytosis Leukocytosis type: unspecified Qualified Code(s): D72.829 - Elevated white blood cell count, unspecified
[2023-09-22] MEDS: MELATONIN 3 MG TAB PO SCH (20:13)
[2023-09-22] MEDS: ATORVASTATIN 40 MG TAB PO SCH (20:13)
[2023-09-23 06:35] LABS: Basophils # (auto) 0.08 K/uL (0.00-0.20); Basophils % (auto) 0.7 %; Eosinophils # (auto) 0.19 K/uL (0.00-0.50); Eosinophils % (auto) 1.6 %; Hematocrit (blood only) 29.6 % (37.0-47.0); Hemoglobin 8.8 g/dl (12.0-16.0); Immature Granulocytes # (auto) 0.07 K/uL (0.01-0.20); Immature Granulocytes % (auto) 0.6 %; Lymphocytes # (auto) 1.21 K/uL (1.20-3.40); Lymphocytes % (auto) 10.4 %; Mean Corpuscular Hemoglobin 25.6 pg (25.0-34.0); Mean Corpuscular Hgb Conc 29.7 g/dL (32.0-36.0); Mean Platelet Volume 9.9 fL (9.4-12.4); Monocytes # (auto) 0.96 K/uL (0.11-0.59); Monocytes % (auto) 8.3 %; Neutrophils # (auto) 9.11 K/uL (1.40-6.50); Neutrophils % (auto) 78.4 %; Platelet Count 693 K/uL (130-400); RDW Coefficient of Variation 22.6 % (11.5-14.5); RDW Standard Deviation 71.1 fL (36.4-46.3); Red Blood Count 3.44 M/uL (4.20-5.40); White Blood Count 11.62 K/ul (4.8-10.8)
[2023-09-23 07:04] LABS: Anisocytosis Present; Polychromasia 3+
[2023-09-23 07:10] LABS: BUN Creatinine Ratio 16.9 (10-20); Calcium 8.7 mg/dl (8.6-10.3); Est GFR (African American) 91.3 ml/min; Est GFR (Non-African American) 78.8 ml/min; Potassium 3.8 mmol/L (3.5-5.1)
[2023-09-23] MEDS: METOPROLOL SUCC 50MG EXT REL TAB PO SCH (08:11)
[2023-09-23] MEDS: CLOPIDOGREL BISULFATE 75 MG TAB PO SCH (08:12)
[2023-09-23] MEDS: dilTIAZem HCL 240 MG CAPCR PO SCH (08:12)
[2023-09-23] MEDS: ASPIRIN 81 MG ECTAB PO SCH (08:12)
[2023-09-23] MEDS: POTASSIUM CHLORIDE 10 MEQ TABCR PO SCH (08:12)
[2023-09-23] MEDS: lisinopril 10 MG TAB PO SCH (08:12)
[2023-09-23] MEDS: DIGOXIN 0.25 MG TAB PO SCH (08:12)
[2023-09-23] MEDS: cephALEXin 500 MG CAP PO SCH ×2 (08:13→11:57)
[2023-09-23] MEDS: PANTOprazole 40 MG TAB PO SCH (08:13)
[2023-09-23] MEDS: SUCRALFATE 1 GM/10 ML UDC PO SCH (08:13)
[2023-09-23] MEDS: POLYETHYLENE (MIRALAX) 17 GM PACK PO SCH (08:13)
[2023-09-23] MEDS: FERROUS GLUCONATE 324 MG TAB PO SCH (08:14)
--- NOTE | 2023-09-23 12:41 | Discharge Summary ---
Date of Service September 23, 2023 Principal Diagnosis New onset atrial fibrillation with rapid ventricular rate, epistaxis right nares, superficial thrombophlebitis right upper extremity Discharge Exam General-alert and oriented x3, no fevers, no chills HEENT-head atraumatic and normocephalic, pupils equal and reactive to light, extraocular muscles intact. Recurrent bleeding from right nares today Neck-no lymphadenopathy or thyromegaly, trachea midline Chest-clear to auscultation percussion. No rales wheezing or rhonchi Cardiac-irregular somewhat tachycardic rate and rhythm. Normal S1 and S2 Abdomen-normal bowel sounds, nontender, no hepatosplenomegaly Extremities-no cyanosis, clubbing, or edema Neuro-cranial nerves II through XII intact, motor and sensory function within normal limits, strength symmetrical, no focal deficits Psych-normal affect, normal mood Discharge Data Allergies Allergy/AdvReac Type Severity Reaction Status Date / Time latex Allergy Rash Verified 09/17/23 22:49 Consultations 09/17/23 16:35 ED Decision to Admit Stat 09/17/23 17:10 ED Decision to Admit Stat 09/21/23 10:37 Consult Otolaryngology (Head and Neck) Routine Ordered Studies 09/18/23 10:20 CT sinus wo con Routine Hospital Course (1) Atrial fibrillation with rapid ventricular response: Continue telemetry. Metoprolol uptitrated further on September 20. Continue diltiazem. She was switched to the CD formulation on September 21. Digoxin has also been added and has helped considerably with rate control.. Will try to avoid amiodarone and its associated toxicity for now. She is on aspirin and Plavix after recent PCI of circumflex and LAD. She is not a candidate for systemic anticoagulation due to recurrent epistaxis. Free T3 and free T4 are normal. (2) Acute blood loss anemia: This appears to be due to recurrent epistaxis but she also has iron deficiency. She received blood transfusion this admission and hemoglobin is now stable. She has completed her parenteral course of iron replacement and has been started on oral iron supplements. Serial labs. (3) Epistaxis: [facility] ENT consultation remains pending. She will need to see ENT as an outpatient. Try to keep the nasal mucosa moist with nasal sprays and Vaseline. Antiplatelet therapy cannot be stopped at this time. CT scan of the sinuses is unremarkable. Fortunately, we have been able to avoid placement of a Rhino Rocket. (4) Superficial thrombophlebitis of arm: Right forearm involvement. Continue heat applications and Keflex until resolved (5) Elevated troponin: Probably supply/demand mismatch. No evidence of acute coronary syndrome. Telemetry. (6) CAD (coronary atherosclerotic disease): triple vessel disease diagnosed at [facility] . Recent heart cath report obtained from that hospital - 70% prox LAD lesion, 80% L Cx lesion, and 80% RCA lesion. PCI was completed and she underwent LEONELA placement in the LAD and L Cx lesions with plans for stenting of the RCA in a few weeks . Unfortunately, her antiplatelet regimen cannot be discontinued. She remains on aspirin and Plavix. (7) History of coronary artery stent placement: 2 stents placed within the last week at [facility] - LAD and Left Cx (8) Leukocytosis: Suspected to be reactive. Serial labs (9) Iron deficiency: She has completed her parenteral iron replacement. She is now on oral ferrous gluconate. Recent EGD at outside hospital revealed gastritis and esophagitis. She was treated while hospitalized with Protonix and Carafate therapy. Home on Protonix (10) Ischemic cardiomyopathy: EF 40-45% with grade 2 diastolic dysfunction on echo at [facility]. Cardiac echo done here looks better with ejection fraction improved to 55%. No overt CHF but she did receive 1 dose of parenteral Lasix while hospitalized here (11) Thrombocytosis: likely 2nd to severe Fe deficiency . Continue on replacement. Serial labs Plan Home today, September 23. She will need to follow-up with her PCP and also with ENT as soon as possible Total Time Total Time Spent Total Time Spent (In Minutes): 45 minutes Discharge Plan Discharge Items Patient Disposition: Home - Home Health Services Reason For Visit: RAPID A.FIB, ACUTE BLOOD LOSS ANEMIA, EPISTAXIS Discharge Diagnosis: New onset atrial fibrillation with rapid ventricular rate, superficial thrombophlebitis right upper extremity, recurrent right nares epistaxis Condition on Discharge: Good Activity: Resume your previous activity Non-emergency contact: Primary Care Provider and Ekg/Ecg Technician Call non-emergency contact if: you have any medication questions and your symptoms worsen Follow-up/Referrals: Jesús Roberts MD [Physician] - (Dr. Roberts office will be calling you to see if they have appointment available on or October 01. The top lift trimmer can be reached at [phone] if you have any questions. ) PCP,NO [Primary Care Provider] - Diet: Regular and Heart Healthy Addtl Attending Provider Instructions: Metoprolol, diltiazem, digoxin are for atrial fibrillation control. Take cephalexin (Keflex) for 1 week for the superficial inflammation of the right forearm. Take iron tablets twice daily to maintain adequate iron levels. Apply heat at least twice a day for 20 minutes to the right arm until phlebitis has resolved Pending Studies at Discharge: No Stand-Alone Forms: [facility] Medications and DC Order Prescriptions: New diltiazem HCl 240 mg Capsule,Extended Release 24hr 240 mg PO QAM Qty: 30 0RF digoxin 250 mcg (0.25 mg) Tablet 0.25 mg PO DAILY Qty: 30 0RF cephalexin 500 mg Capsule 500 mg PO QID Qty: 28 0RF nitroglycerin [Nitrostat] 0.4 mg Tablet, Sublingual 0.4 mg sublingual Q5M PRN (Reason: chest pain) Qty: 25 0RF ferrous gluconate 324 mg (38 mg iron) Tablet 324 mg PO BIDM Qty: 60 0RF oxymetazoline [Nasal Pierce (oxymetazoline)] 0.05 % Pierce,Non-Aerosol 4 spray NA Q12H PRNQty: 0 0RF aspirin 81 mg Tablet,Delayed Release (Dr/Ec) 81 mg PO QAM Qty: 0 0RF Saline Mist 0.65 % Aerosol,Pierce 2 spray NA Q1H PRNQty: 0 0RF Continued atorvastatin 40 mg tablet 40 mg PO HS clopidogrel 75 mg tablet 75 mg PO DAILY pantoprazole 40 mg tablet,delayed release (DR/EC) 40 mg PO DAILY nitroglycerin 0.4 mg tablet, sublingual 0.4 mg sublingual DIRECTED PRN (Reason: Chest Pain) lisinopril 5 mg tablet 5 mg PO QAM furosemide 20 mg tablet 20 mg PO QAM metoprolol succinate 25 mg tablet extended release 24 hr 12.5 mg PO DAILY potassium chloride 10 mEq tablet,ER particles/crystals 10 meq PO .EVERY OTHER DAY melatonin 1 tab PO HS Discontinued ferrous sulfate [FeroSul] 325 mg (65 mg iron) tablet 325 mg PO QAM Discharge Orders: Discharge Order (Routine); Ordered 09/23/23 Ordered By: Alexys Acosta Admission Data Admit Date/Time: 09/17/23 21:09 Attending Provider: Alexys Acosta Admit Provider: Marquis Sharpe Primary Care Provider: PCP,NO Other Providers: Jose Luis Bran; Marquis Sharpe; Carola Bird; Joi Oscar; Isaiah Toscano Coding Level of Care Code 92726 INP/OBS DISCH >30 MIN Diagnoses Atrial fibrillation with rapid ventricular response I48.91 Acute blood loss anemia D62 Epistaxis R04.0 Superficial thrombophlebitis of arm I80.8 Elevated troponin R79.89 CAD (coronary atherosclerotic disease) I25.10 History of coronary artery stent placement Z95.5 Leukocytosis D72.829 Leukocytosis type: unspecified Iron deficiency E61.1 Ischemic cardiomyopathy I25.5 Thrombocytosis D75.839
== END 2023-09-23 16:21 | disposition home or self-care (01) | DRG 151 ==
LOC: ED 14:51 → 2E 21:09 → SUATTDRO 21:09 → 2E 21:48
DX: I25.5 Ischemic cardiomyopathy; D62 Acute posthemorrhagic anemia; Z87.891 Personal history of nicotine dependence; Z95.5 Presence of coronary angioplasty implant and graft; I48.91 Unspecified atrial fibrillation; Z79.82 Long term (current) use of aspirin; Z91.040 Latex allergy status; I25.10 Atherosclerotic heart disease of native coronary artery without angina pectoris; I24.89 Other forms of acute ischemic heart disease; I80.8 Phlebitis and thrombophlebitis of other sites; Z79.02 Long term (current) use of antithrombotics/antiplatelets; R04.0 Epistaxis; Z98.890 Other specified postprocedural states; D50.9 Iron deficiency anemia, unspecified; D72.829 Elevated white blood cell count, unspecified